=== PATIENT | male | born 2000 | race African-American/Black ===

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

== ENCOUNTER 2020-10-05 11:28 | Emergency (ER) | payer OTHER ==
[2020-05-27 22:22] VITALS: BP 122/76
[~2020-10-05 11:28] MED LIST: CYCL10TA2 PO; DICL50TA4 PO
== END 2020-10-05 14:24 | disposition left against medical advice (07) ==
LOC: ER 11:28
DX: M79.605 Pain in left leg (principal); Z53.21 Procedure and treatment not carried out due to patient leaving prior to being seen by health care provider

== ENCOUNTER 2021-06-12 18:58 | Emergency (ER) | payer SELFPAY ==
[2020-05-27 22:22] VITALS: BP 122/76
[~2021-06-12 18:58] MED LIST changes: +CYCL10TA19 PO; -CYCL10TA2 PO
== END 2021-06-12 19:15 | disposition left against medical advice (07) ==
LOC: ER 18:58
DX: R04.0 Epistaxis (principal); Z53.21 Procedure and treatment not carried out due to patient leaving prior to being seen by health care provider